=== PATIENT | female | born 1975 | race Caucasian/White ===

== ENCOUNTER 2016-03-02 18:48 | Emergency (ER) | payer MEDICAID, OTHER ==
[~2016-03-02] VITALS: Ht 167.6 cm; Wt 72.0 kg
[~2016-03-02 18:48] MED LIST: TRAM50 PO
[2016-03-02 18:50] VITALS: BP 141/61; PULSE 88; RESP 20; TEMP 99.7; O2SAT 97
[2016-03-02] MEDS ORDERED: SODIUM CHLOR 0.9% 1000 ML INJ 1,000 ML IV SCH (19:06)
--- NOTE | 2016-03-02 19:06 | PD ---
HPI Chief Complaint: Cold / Flu Symptoms Time Seen by Provider: 19:01 Travel History International Travel<30 days: No Contact w/Intl Traveler<30days: No Traveled to known affect area: No History of Present Illness HPI 40-year-old female coming in with four-day history of complaints of fever, chills, sinus congestion, postnasal drip, cough, sore throat, chest congestion, shortness of breath, mild nausea, and vomiting 3 today. Patient states she has decreased urine output secondary to not being able to keep anything down. Patient has generalized myalgias. She has no rash. She denies diarrhea or abdominal pain. She states there is a viral illness going through her family at this time. Patient has no known drug allergies. PFSH Past Medical History Asthma: Yes Blood Disorders: No Cancer: Yes (OVARIAN) Cardiovascular Problems: No Cerebrovascular Accident: Yes (2008) Diminished Hearing: No Endocrine: No Gastrointestinal Disorders: Yes GERD: No Genitourinary: No Headaches: Yes Hepatitis: No Hiatal Hernia: No Immune Disorder: No Musculoskeletal: No Neurologic: Yes (MENINGITIS) Psychiatric: No Reproductive: No Respiratory: No Migraines: Yes Seizures: No Ulcer: Yes : 3 Para: 3 Tubal Ligation: Yes Past Surgical History Abdominal Surgery: No AICD: No Appendectomy: No Arteriovenous Shunt: No Cholecystectomy: No Ear Surgery: No Endocrine Surgery: No Eye Surgery: No Genitourinary Surgery: No Gynecologic Surgery: Yes (Tubal) Insulin Pump: No Joint Replacement: No Oral Surgery: No Pacemaker: No Thoracic Surgery: No Other Surgery: Yes Social History Alcohol Use: No Tobacco Use: Yes (1.5 PPD) Substance Use: No Allergies-Medications (Allergen,Severity, Reaction): Coded Allergies: No Known Allergies (Verified , 03/02/16) Reported Meds & Prescriptions Reported Meds & Active Scripts Active Prednisone 20 Mg Tab 20 Mg PO BID Azithromycin 250 Mg Tab 250 Mg PO DIRECTED Take 2 tabs (500 mg) on day 1 then 1 tab daily x 4 days. Ventolin Hfa 18 GM Inh (Albuterol Sulfate) 90 Mcg/Act Aer 2 Puff INH Q4-6H PRN Review of Systems Except as stated in HPI: all other systems reviewed are Neg General / Constitutional: Positive: Fever, Chills Eyes: No: Visual changes HENT: Positive: Headaches, Sore Throat, Rhinitis, Rhinorrhea, Congestion, No: Neck Stiffness, Neck Pain, Ear Discharge, Earache Cardiovascular: No: Chest Pain or Discomfort Respiratory: Positive: Cough, Shortness of Breath, No: Wheezing, Sneezing Gastrointestinal: Positive: Nausea, Vomiting, No: Diarrhea, Abdominal Pain Genitourinary: Positive: Decreased Urinary Output, No: Urgency, Frequency, Dysuria Musculoskeletal: Positive: Myalgias, No: Arthralgias, Limited ROM, Pain Skin: No Rash Neurologic: No: Weakness Psychiatric: No: Depression Endocrine: No: Polydipsia Hematologic/Lymphatic: No: Easy Bruising Physical Exam Narrative GENERAL: Patient appears ill but not septic. SKIN: Warm and dry. Normal color. Normal turgor. No rash. HEAD: Atraumatic. Normocephalic. EYES: Pupils equal and round. No scleral icterus. No injection or drainage. ENT: No nasal bleeding or discharge. Mucous membranes pink and somewhat dry. Posterior pharynx is injected with moderate cobblestoning and obvious postnasal drip noted. No significant lymphadenopathy. Uvula is midline. Patient is sinus tenderness to palpation in the maxillary sinuses bilaterally. TMs show serous effusions without bulging or erythema. NECK: Trachea midline. No JVD. Supple and nontender. No significant lymphadenopathy. CARDIOVASCULAR: Regular rate and rhythm. RESPIRATORY: No accessory muscle use. Coarse breath sounds to auscultation. No wheezes rales or crackles. Breath sounds equal bilaterally. GASTROINTESTINAL: Abdomen soft, non-tender, nondistended. Hepatic and splenic margins not palpable. No CVA tenderness. MUSCULOSKELETAL: Extremities without clubbing, cyanosis, or edema. No obvious deformities. NEUROLOGICAL: Awake and alert. No obvious cranial nerve deficits. Motor grossly within normal limits. Five out of 5 muscle strength in the arms and legs. Normal speech. PSYCHIATRIC: Appropriate mood and affect; insight and judgment normal. Data Data Last Documented VS Vital Signs Date Time Temp Pulse Resp B/P Pulse Ox O2 Delivery O2 Flow Rate FiO2 03/02/16 19:27 16 03/02/16 18:50 99.7 88 141/61 97 Room Air Orders Complete Blood Count With Diff (03/02/16 19:06) Comprehensive Metabolic Panel (03/02/16 19:06) Lactic Acid (03/02/16 19:06) Urinalysis - C+S If Indicated (03/02/16 19:06) Iv Access Insert/Monitor (03/02/16 19:06) Ecg Monitoring (03/02/16 19:06) Oximetry (03/02/16 19:06) NPO (03/02/16 19:06) Sodium Chlor 0.9% 1000 Ml Inj (Ns 1000 M (03/02/16 19:06) Sodium Chloride 0.9% Flush (Ns Flush) (03/02/16 19:15) Chest, Single Ap (03/02/16 19:06) Ketorolac Inj (Toradol Inj) (03/02/16 19:15) Ondansetron Inj (Zofran Inj) (03/02/16 19:15) Acetaminophen (Tylenol) (03/02/16 19:15) Influenzae A/B Antigen (03/02/16 19:06) Prednisone (Deltasone) (03/02/16 19:45) Azithromycin (Zithromax) (03/02/16 19:45) Albuterol-Ipratropium Neb (Duoneb Neb) (03/02/16 19:45) Labs Laboratory Tests Test 03/02/16 03/02/16 19:25 19:30 Urine Color YELLOW Urine Turbidity CLEAR Urine pH 8.0 Urine Specific [place] 1.009 Urine Protein NEG mg/dL Urine Glucose (UA) NEG mg/dL Urine Ketones NEG mg/dL Urine Occult Blood NEG Urine Nitrite NEG Urine Bilirubin NEG Urine Urobilinogen LESS THAN 2.0 MG/DL Urine Leukocyte Esterase NEG Urine RBC 1 /hpf Urine WBC 5 /hpf Urine Squamous Epithelial 2 /hpf Cells Urine Bacteria RARE /hpf Microscopic Urinalysis Comment CULT NOT INDICATED White Blood Count 6.9 TH/MM3 Red Blood Count 4.29 MIL/MM3 Hemoglobin 12.0 GM/DL Hematocrit 36.1 % Mean Corpuscular Volume 84.2 FL Mean Corpuscular Hemoglobin 28.1 PG Mean Corpuscular Hemoglobin 33.3 % Concent Red Cell Distribution Width 15.0 % Platelet Count 180 TH/MM3 Mean Platelet Volume 9.5 FL Neutrophils (%) (Auto) 82.7 % Lymphocytes (%) (Auto) 11.3 % Monocytes (%) (Auto) 5.5 % Eosinophils (%) (Auto) 0.2 % Basophils (%) (Auto) 0.3 % Neutrophils # (Auto) 5.7 TH/MM3 Lymphocytes # (Auto) 0.8 TH/MM3 Monocytes # (Auto) 0.4 TH/MM3 Eosinophils # (Auto) 0.0 TH/MM3 Basophils # (Auto) 0.0 TH/MM3 CBC Comment DIFF FINAL Differential Comment Sodium Level 140 MEQ/L Potassium Level 3.3 MEQ/L Chloride Level 107 MEQ/L Carbon Dioxide Level 23.9 MEQ/L Anion Gap 9 MEQ/L Blood Urea Nitrogen 2 MG/DL Creatinine 0.64 MG/DL Estimat Glomerular Filtration 104 ML/MIN Rate Random Glucose 94 MG/DL Lactic Acid Level 1.6 mmol/L Calcium Level 8.2 MG/DL Total Bilirubin 0.2 MG/DL Aspartate Amino Transf 16 U/L (AST/SGOT) Alanine Aminotransferase 21 U/L (ALT/SGPT) Alkaline Phosphatase 117 U/L Total Protein 7.3 GM/DL Albumin 3.5 GM/DL MDM Medical Decision Making Medical Screen Exam Complete: Yes Emergency Medical Condition: Yes Differential Diagnosis Fever. Influenza. Upper respiratory infection. Sinusitis. Bronchitis. Pneumonia. Urinary tract infection. Narrative Course Patient appears ill but not septic upon exam. Labs ordered including CBC, CMP, lactic acid and urinalysis as well as rapid influenza. IV access is obtained patient is given 1000 mL normal saline bolus, 30 mg Toradol IV, 4 mg Zofran IV, and 650 mg of acetaminophen by mouth. Chest x-ray is ordered. Chest x-ray showed bilateral perihilar infiltrates per radiologist. Patient is given DuoNeb 1. Patient is given azithromycin 500 mg by mouth. Patient is given prednisone 60 mg by mouth. 1820 hrs. patient is reassessed feels improved. CBC is unremarkable. Influenza is negative. Urinalysis is within normal limits. CMP is unremarkable. Patient is felt to be stable be discharged home. Patient will be continued on azithromycin Dosepak as prescribed. Patient is given albuterol metered-dose inhaler, 2 puffs every 4-6 hours when necessary wheezing. Patient is given prednisone 20 mg twice a day 5 days. Patient is to rest at home and push fluids. Work note is given. Patient is to follow-up with her primary care physician or return to emergency department if symptoms worsen. Diagnosis Primary Impression: Bronchitis Additional Impressions: Wheezing Fever and chills Patient Instructions: General Instructions Departure Forms: Work Release Enter return to work date: Mar 05, 2016 Additional Instructions: Patient is felt to be stable be discharged home. Patient will be continued on azithromycin Dosepak as prescribed. Patient is given albuterol metered-dose inhaler, 2 puffs every 4-6 hours when necessary wheezing. Patient is given prednisone 20 mg twice a day 5 days. Patient is to rest at home and push fluids. Work note is given. Patient is to follow-up with her primary care physician or return to emergency department if symptoms worsen. Med/Other Pt SpecificInfo: Prescription(s) given Scripts Prednisone 20 Mg Tab20 Mg PO BID #10 TAB Prov:Evelyn Alvarez MD 03/02/16 Azithromycin 250 Mg [id number] Mg PO DIRECTED #6 TAB Take 2 tabs (500 mg) on day 1 then 1 tab daily x 4 days. Prov:Evelyn Alvarez MD 03/02/16 Albuterol 18 GM Inh (Ventolin Hfa 18 GM Inh)90 Mcg/Act Aer2 Puff INH Q4-6H PRN ( SHORTNESS OF BREATH) #1 INHALER Prov:Evelyn Alvarez MD 03/02/16 Disposition: 01 DISCHARGE HOME Condition: Stable Mariano Godfrey Mar 02, 2016 19:06
[2016-03-02] MEDS ORDERED: SODIUM CHLORIDE 0.9% FLUSH 5 ML FLUSH IVF PRN (19:15)
[2016-03-02] MEDS ORDERED: ONDANSETRON HCL 4 MG/2 ML VIAL IV PUSH ONE (19:15)
[2016-03-02] MEDS ORDERED: ACETAMINOPHEN 325 MG TAB PO ONE (19:15)
[2016-03-02] MEDS ORDERED: KETOROLAC TROMETHAMINE 30 MG/ML (IVP) VIAL IVP ONE (19:15)
[2016-03-02 19:27] VITALS: RESP 16
--- NOTE | 2016-03-02 19:36 | RADRPT ---
EXAM DATE/TIME: 03/02/2016 19:26 [facility] COMPARISON: No previous studies available for comparison. INDICATIONS : Fever. Cough and congestion. MEDICAL HISTORY : Asthma. SURGICAL HISTORY : None. ENCOUNTER: Initial ACUITY: 2 days PAIN SCORE: 0/10 LOCATION: Bilateral chest FINDINGS: Minimal streaky perihilar infiltrate is present. There is no evidence of lobar consolidation or pleur al effusion. Heart size mediastinal contours are satisfactory. CONCLUSION: Mild perihilar infiltrates. Jam Vicente MD on March 02, 2016 at 19:34 Board Certified Radiologist. This report was verified electronically.
[2016-03-02] MEDS ORDERED: predniSONE 20 MG TAB PO ONE (19:45)
[2016-03-02] MEDS ORDERED: AZITHROMYCIN 250 MG TAB PO ONE (19:45)
[2016-03-02] MEDS ORDERED: RESP: ALBUTEROL 2.5 MG/IPRATROPIUM 0.5 MG NEB (SCH) INH ONE (19:45)
[2016-03-02 19:52] LABS: AUTOMATED NEUTROPHIL # 5.7 TH/MM3 (1.8-7.7); BASOPHIL % 0.3 % (0.0-2.0); EOSINOPHIL % 0.2 % (0.0-4.0); HEMATOCRIT 36.1 % (35.0-46.0); HEMO FLAGS DIFF FINAL; LYMPH % 11.3 % (9.0-44.0); LYMPHOCYTE # 0.8 TH/MM3 (1.0-4.8); MEAN CELL VOLUME 84.2 FL (80.0-100.0); MEAN CORPUSCULAR HEMOGLOBIN 28.1 PG (27.0-34.0); MEAN CORPUSCULAR HGB CONC 33.3 % (32.0-36.0); MONO % 5.5 % (0.0-8.0); NEUT % 82.7 % (16.0-70.0); PLATELET COUNT 180 TH/MM3 (150-450); RED BLOOD COUNT 4.29 MIL/MM3 (4.00-5.30); WHITE BLOOD COUNT 6.9 TH/MM3 (4.0-11.0)
[2016-03-02 20:06] LABS: BACTERIA, URINE RARE /hpf; BLOOD, URINE NEG (NEG); COMMENT (UR) CULT NOT INDICATED; CULTURE IF INDICATED CULT NOT INDICATED; GLUCOSE,URINE NEG (NEG); KETONE, URINE NEG (NEG); NITRITE,URINE NEG (NEG); SQUAMOUS EPITHELIAL CELL URINE 2 /hpf (0-5); URINE COLOR YELLOW (YELLW/STRAW)
[2016-03-02] MEDS ORDERED: PRED20 PO (20:19)
[2016-03-02] MEDS ORDERED: VENTAER INH (20:19)
[2016-03-02] MEDS ORDERED: AZIT250T3 PO (20:19)
[2016-03-02 20:21] LABS: ANION GAP 9 MEQ/L (5-15); AST (GOT) 16 U/L (15-37); BICARBONATE 23.9 MEQ/L (21.0-32.0); BLOOD UREA NITROGEN 2 MG/DL (7-18); CHLORIDE 107 MEQ/L (98-107); GLOMERULAR FILTRATION RATE 104 ML/MIN (>89); POTASSIUM 3.3 MEQ/L (3.5-5.1); SODIUM (NA) 140 MEQ/L (136-145)
[2016-03-02 20:24] LABS: ALKALINE PHOSPHATASE 117 U/L (45-117); ALT (GPT) 21 U/L (10-53); TOTAL BILIRUBIN ADULT 0.2 MG/DL (0.2-1.0)
[2016-03-02 21:00] VITALS: BP 132/71; PULSE 77; RESP 16; O2SAT 98
== END 2016-03-02 21:34 | disposition home or self-care (01) ==
LOC: NEPC 18:48
DX: J40 Bronchitis, not specified as acute or chronic (principal); R50.9 Fever, unspecified; J45.909 Unspecified asthma, uncomplicated; F17.210 Nicotine dependence, cigarettes, uncomplicated; Z86.73 Personal history of transient ischemic attack (TIA), and cerebral infarction without residual deficits
CPT/HCPCS: 71010; 80053; 81001; 83605; 85025; 87804; 94664; 96361; 96374; 96375; 99284; J1885; J2405; J7030; J7512